=== PATIENT | male | born 1940 | race Caucasian/White ===

== ENCOUNTER → 2018-03-08 | Outpatient (CLI) | payer MEDICARE, OTHER ==
--- NOTE | 2018-03-08 10:22 | CT ---
EXAM DESCRIPTION: Head CLINICAL HISTORY: DYSEQUILIBRIUM TRAUMATIC SUBDURAL HEMATOMA COMPARISON: None available TECHNIQUE: Noncontrast head CT was performed with routine protocol. FINDINGS: Normal paulino-white matter differentiation. Ventricles and sulci are normal for age. No high density hemorrhage, focal edema or shift of the midline. No sulcal effacement. Normal orbital contents. Basilar cisterns appear clear. Intact calvarium with no fracture or lytic lesion. Normal aeration of tympanic cavities and mastoid air cells. No fluid levels in the paranasal sinuses. Skull base appears intact. Symmetrical internal auditory canals. IMPRESSION: No acute intracranial pathologic process. This exam was performed according to our departmental dose-optimization program, which includes automated exposure control, adjustment of the mA and/or kV according to patient size and/or use of iterative reconstruction technique. Total DLP equals 752.48 mGycm. Electronically signed by: Sadiq Hernandez MD 03/08/2018 10:20 AM CDT
== END ==
LOC: CT 10:00
PROVIDERS: ATTEND General Practice
DX: H81.93 Unspecified disorder of vestibular function, bilateral (principal); S06.5X0D Traumatic subdural hemorrhage without loss of consciousness, subsequent encounter